=== PATIENT | male | born 1995 ===

== ENCOUNTER 2020-11-10 23:19 | Emergency (ER) | payer SELFPAY ==
[~2020-11-10] VITALS: Ht 180.3 cm; Wt 113.4 kg
[2020-11-11 00:25] VITALS: BP 126/84
[2020-11-11] MEDS ORDERED: IBUPROFEN 800 MG TAB PO ONE (01:15)
== END 2020-11-11 01:28 | disposition home or self-care (01) ==
LOC: ER 23:19
DX: H66.91 Otitis media, unspecified, right ear (principal)